=== PATIENT | male | born 1985 | race Caucasian/White ===

== ENCOUNTER 2022-04-11 11:45 | Emergency (ER) | payer MEDICAID, SELFPAY ==
[2022-04-11 11:46] VITALS: BP 150/89; PULSE 93; RESP 16; TEMP 36.7; O2SAT 98; BMI 23.7
--- NOTE | 2022-04-11 12:37 | EX.ED.DYSGE1 ---
HPI <BRYAN Parrish - Last Filed: 04/11/22 13:54> History of Present Illness Chief Complaint: Allergic Reaction Narrative Narrative: 36-year-old male with no past medical history presents with paresthesias. He got his first Moderna shot in his left arm 3 days ago. He says since then he had some transient fever, chills, muscle aches but also numbness and tingling in his left arm and both lower extremities. They viral type symptoms have resolved and the paresthesias have improved but he feels like whenever he sleeps his left hand and his left foot are numb. There is no weakness. No swelling or skin changes. PFSH <BRYAN Parrish Last Filed: 04/11/22 13:54> PFS Home Medications NK 04/11/22 [History Last Taken Unknown] Allergy/AdvReac Type Severity Reaction Status Date / Time No Known Allergies Allergy Verified 04/11/22 11:48 Surgical History (Updated 04/11/22 @ 12:00 by Radha Yan) Hx of cholecystectomy Social History Smoking Status: Never smoker ROS <BRYAN Parrish - Last Filed: 04/11/22 13:54> ROS ED ROS Narrative Constitutional: Negative for fever, chills, malaise. Eyes: Negative for visual change. ENT: Negative for sore throat, ear pain, rhinorrhea. CVS: Negative for palpitations, chest pain, syncope. Respiratory: Negative for shortness of breath, cough, orthopnea. GI: Negative for abdominal pain, nausea, vomiting, diarrhea, constipation, melena, hematochezia. : Negative for dysuria, hematuria or frequency. Neuro: Positive for paresthesias. Negative for headache, motor dysfunction. Skin: Negative for rash, abscess, or wound. Musc: Negative for joint pain, swelling, trauma. Heme: Negative for easy bruising, bleeding, lymphadenopathy. EXAM <BRYAN Parrish Last Filed: 04/11/22 13:54> Physical Exam Narrative Exam Narrative: CONST: Patient sitting in no acute distress. EYES: Normal inspection. NECK: Normal inspection. RESP: No respiratory distress, CTAB. CVS: Regular rate and rhythm, no murmur, no gallop. SKIN: Color normal, no rash, warm, dry, intact. EXTREMITIES: Normal appearance, no edema. NEURO: Oriented x4. PSYCH: Normal affect. Const Vital Signs: 04/11/22 11:46 Temperature 98.0 F Temperature Source Temporal Pulse Rate 93 Respiratory Rate 16 Blood Pressure 150/89 H Blood Pressure Mean 109 Pulse Ox 98 Oxygen Delivery Method Room Air <Dr. Tray Dela Cruz DO - Last Filed: 04/11/22 15:31> Physical Exam Const Vital Signs: 04/11/22 11:46 Temperature 98.0 F Temperature Source Temporal Pulse Rate 93 Respiratory Rate 16 Blood Pressure 150/89 H Blood Pressure Mean 109 Pulse Ox 98 Oxygen Delivery Method Room Air MDM <BRYAN Parrish - Last Filed: 04/11/22 13:54> [facility] Narrative Medical decision making narrative: Patient presents with paresthesias in his left arm and left leg have been going on for the last 3 days. He states now just his left hand and left foot feel numb after he wakes up from sleeping. He is concerned this is a reaction to the COVID-vaccine he received. Patient appears well and nontoxic. Vital signs within normal limits. Medical exam is benign. He has normal sensation to light touch in face and upper and lower extremities. Normal strength, NIH is 0. I told him I really do not think this is a reaction to the vaccine. When his nurse went back in his room he had eloped prior to the attending evaluation. 1. Paresthesias, upper and lower extremities <Dr. Tray Dela Cruz DO - Last Filed: 04/11/22 15:31> [facility] Narrative Medical decision making narrative: This patient was seen with a PA/EVALUATION MANAGER Individually assessed they patient including history and physical. I have reviewed everything on the chart that is available however before I could see the patient the patient eloped from the emergency room. Patient presents with paresthesias in his left arm and left leg have been going on for the last 3 days. He states now just his left hand and left foot feel numb after he wakes up from sleeping. He is concerned this is a reaction to the COVID-vaccine he received. Patient appears well and nontoxic. Vital signs within normal limits. Medical exam is benign. He has normal sensation to light touch in face and upper and lower extremities. Normal strength, NIH is 0. I told him I really do not think this is a reaction to the vaccine. When his nurse went back in his room he had eloped prior to the attending evaluation. 1. Paresthesias, upper and lower extremities Discharge Plan Triage Chief Complaint: Allergic Reaction ED Midlevel Provider: Clemencia Castro ED Provider: Tray Dela Cruz Dx/Rx/DC Orders Clinical Impression: Paresthesia Prescriptions: No Action NK Primary Care Provider: Care Physician,No Primary Referrals: NOT,DEFINED [NON-STAFF] - Disposition Disposition: Home, Self Care Discharge Date/Time: 04/11/22 13:34
--- NOTE | 2022-04-11 13:35 | ED.RN ---
pt refused to sign form for registration and left without papers. c/o felt like the lady that came in to see me was very unprofessional and i dont feel like being here to get degraded pt walked out without papers or wc.
== END 2022-04-11 13:34 | disposition home or self-care (01) ==
LOC: ED 13:30
PROVIDERS: Emergency Provider Student in an Organized Health Care Education/Training Program; Visit Provider Student in an Organized Health Care Education/Training Program
DX: R20.2 Paresthesia of skin (principal); M79.10 Myalgia, unspecified site; R50.9 Fever, unspecified
CPT/HCPCS: 99281; 99282

== ENCOUNTER 2022-09-24 22:55 | Emergency (ER) | payer MEDICAID, SELFPAY ==
[2022-09-24 22:55] VITALS: BP 175/96; PULSE 118; RESP 18; TEMP 36.7; O2SAT 100; BMI 23.0
[2022-09-24 23:05] VITALS: BP 150/94; PULSE 102; RESP 22; O2SAT 100
--- NOTE | 2022-09-24 23:14 | RAD_ITS ---
INDICATION: Cp EXAMINATION/TECHNIQUE: X-RAY - XR Chest 1 View AP portable. 11:32 PM. COMPARISON: None. FINDINGS: LINES/DEVICES: None. LUNGS: No consolidation. No pneumothorax. MEDIASTINUM: Unremarkable. CARDIAC SILHOUETTE: Not enlarged. BONES AND SOFT TISSUES: No acute abnormalities. RAD/Chest 1 View (Portable) IMPRESSION: Negative portable chest x-ray. Electronically Signed: Anat Hayes MD at 23:59 EST ,
--- NOTE | 2022-09-24 23:15 | EKG12_ITS ---
Test Reason : DYSRHYTHMIA Blood Pressure : / mmHG Vent. Rate : 102 BPM Atrial Rate : 102 BPM P-R Int : 142 ms QRS Dur : 104 ms QT Int : 344 ms P-R-T Axes : 080 077 061 degrees QTc Int : 448 ms Sinus tachycardia Possible Right atrial enlargement Nonspecific T wave abnormality Abnormal ECG Confirmed by MANDY MURPHY, JOHN ([id number]), slot editor MAURISIO SHABAZZ ([id number]) on 09/29/2022 1:05:02 PM Referred By: ERICKA Confirmed By:JOHN GALVAN MD
--- NOTE | 2022-09-24 23:29 | EDS_ITS ---
HPI History of Present Illness Chief Complaint: Palpitations Informant: patient Narrative Narrative: Patient states he has been having episodes of chest pain in the middle of his chest that will sometimes radiate up toward the neck. They last about 10 or 15 seconds at the most. These have been going on for 2 or 3 weeks. There is nothing specific that brings them on. He can exert himself without symptoms or he may get symptoms. Symptoms can occur when he is at rest too. There is no consistency. Nothing really makes it better or worse. He does feel little short of breath with these sometimes. He feels a little lightheaded. He is not having symptoms now. He also has been getting racing heartbeats frequently for the last 2 or 3 weeks. He thinks it is fast and regular versus irregular but not sure. He saw his primary doctor for this but symptoms cannot be reproduced. Patient denies any chronic medical conditions. He has no blood pressure diabetes cholesterol smoking history or family history of heart disease or DVT or PEs. Is on no medications No allergies. Last surgery was gallbladder about 6 years ago. Non-smoker and uses no IV drugs. No [id number] meds. PFSH PFS Home Medications NK 04/11/22 [History Last Taken Unknown] Allergy/AdvReac Type Severity Reaction Status Date / Time No Known Allergies Allergy Verified 09/24/22 22:58 Surgical History Hx of cholecystectomy Social History Smoking Status: Never smoker ROS ROS ED Constitutional Constitutional ED: Denies fever(s) or subjective Eyes Eyes: Denies blurry vision, change in vision or diplopia ENT ENT ED: Denies ear pain, rhinorrhea or sore throat Cardiovascular Cardiovascular: Reports chest pain, palpitations and racing heartbeat Respiratory/Chest Respiratory/Chest: Reports dyspnea; Denies cough or sputum Gastrointestinal Gastrointestinal: Denies abdominal pain, nausea or vomiting Genitourinary Genitourinary ED: Denies hematuria Musculoskeletal Musculoskeletal: Reports neck pain; Denies back pain or myalgias Integumentary Denies abscess, Abrasions or rash Neurologic Neurologic: Denies headache(s), paresthesias or weakness Psychiatric Psychiatric: Denies anxiety Endocrine Endocrinology: Denies polydipsia or polyuria Hematologic/Lymphatic Hematologic/Lymphatic: Denies easy bleeding or easy bruising Allergic/Immunologic Allergic/Immunologic ED: Denies urticaria EXAM Physical Exam Const Vital Signs: 09/24/22 22:55 09/24/22 23:05 09/24/22 23:05 Temperature 98.0 F Temperature Source Temporal Pulse Rate 118 H 102 H Respiratory Rate 18 22 H Respiratory Effort Short of Breath Blood Pressure 175/96 H 150/94 H Blood Pressure Mean 122 112 Pulse Ox 100 100 Oxygen Delivery Method Room Air Room Air 09/25/22 00:29 Temperature Temperature Source Pulse Rate 92 Respiratory Rate 12 Respiratory Effort Blood Pressure 125/82 H Blood Pressure Mean 96 Pulse Ox 99 Oxygen Delivery Method Room Air Positive well nourished and well developed General Appearance ED: well developed and NAD; Negative for cyanotic or diaphoretic HEENT Reports moist mucous membranes Eyes EOMs intact bilaterally General Eye ED: Negative for scleral icterus Neck supple and no JVD Neck Narrative: No bruit. No tenderness. No swelling. Chest Wall inspection of chest normal and palpation of chest normal Resp normal respiratory effort and clear to auscultation bilaterally Resp Narrative: No pleuritic pain Effort and Inspection: Negative for retractions or pain with movement Auscultation: Negative for rales, rhonchi or wheezes Cardio regular rate and regular rhythm Rate: other Other Details: Heart rate is running about 95-104 right now. It looks to be sinus. I see no ectopy. GI normal to inspection, nondistended, normoactive bowel sounds and non-tender Back/Spine no CVA tenderness Extremity normal to inspection Extremity Narrative: No edema, cords, distended veins tenderness or asymmetry General Extremety ED: Negative for edema or tenderness General Extremity: Negative for edema Neuro Sensorium / Orientation: alert Psych mental status grossly normal Skin no rashes or lesions noted MDM MDM MDM Narrative Medical decision making narrative: Chest x-ray showed no acute process. CBC including white count hemoglobin and platelets are normal. D-dimer is negative. Troponins negative despite 2 weeks of symptoms. Electrolytes do show elevated BUN showing mild dehydration. This is likely due to elevated glucose of 170. I do not think this requires acute treatment for hyperglycemia but it is very important he gets follow-up and this was explained to the patient. I also explained that since he gets pain in the mid chest going up to his neck he can try Prilosec or Nexium once a day to see if this might help his symptoms. He states he only eats 1 time a day and I think this could contribute to some gastritis. If he develops worsening pain lightheadedness or other symptoms he should return. He will see his physician in follow-up. We discussed that he may end up getting outpatient stress test or Holter monitor or other work-up. He has low heart score and I think he is safe to go home with a negative work-up after a couple weeks of symptoms. Lab Data Attestation: I reviewed the patient's lab results. Labs: Laboratory Results - last 24 hr 09/24/22 09/24/22 09/24/22 23:25 23:25 23:25 WBC 5.2 RBC 5.00 Hgb 15.2 Hct 43.9 MCV 87.8 MCH 30.4 MCHC 34.6 RDW Std Deviation 38.5 RDW Coeff of Jazmyne 12.0 Plt Count 152 MPV 9.8 Immature Gran % (Auto) 0.400 Neut % (Auto) 52.4 Lymph % (Auto) 35.6 [place] % (Auto) 10.8 H Eos % (Auto) 0.4 Baso % (Auto) 0.4 Absolute Neuts (auto) 2.7 Absolute Lymphs (auto) 1.84 Nucleated RBC % 0 D-Dimer Quant (PE/DVT) 0.27 Sodium 141 Potassium 3.5 Chloride 106 Carbon Dioxide 29.0 Anion Gap 6 BUN 28 H Creatinine 0.76 Estim Creat Clear Calc 142.33 Est GFR (MDRD) Af Amer 148 Est GFR (MDRD) Non-Af 122 BUN/Creatinine Ratio 37.1 H Glucose 170 H Calcium 8.9 Troponin I High Sens 4 Radiography Diagnostic Testing: Clinical Impression(s) from Imaging Studies Chest X-Ray 09/24/22 23:14 IMPRESSION: Negative portable chest x-ray. Electronically Signed: Anat Hayes MD at 23:59 EST , Chest x-ray looked at by me and read by radiology shows no acute process. EKG Initial EKG: Comments: EKG done for palpitations and chest pain read by me showed sinus rhythm with mild tachycardic rate at 102. No ectopy is noted. Nonspecific ST and T wave changes but no acute ST elevation or depression of note. CA interval, QRS duration and QTc are normal. There is no prior available that I find in our system to compare. Discharge Plan Triage Chief Complaint: Palpitations ED Provider: Bryon Veloz Dx/Rx/DC Orders Clinical Impression: Chest pain, Heart palpitations Instructions: ED Chest Pain, Uncertain Cause, ED Palpitations Prescriptions: No Action NK Primary Care Provider: Valentina Heard Referrals: Care Physician,No Primary [Non-Staff] - Activity Restrictions/Additional Instructions: Follow-up with your family doctor as soon as possible. They may do further testing, stress test, Holter monitor or other evaluation. We also need repeat testing for elevated blood sugar that was found today. Disposition Disposition: Home, Self Care
[2022-09-24] MEDS: 0.9% Normal Saline 1,000 ML 1000 ML IV (23:30)
[2022-09-24 23:42] LABS: Absolute Lymphocyte Count 1.84 X10^3/uL (0.83-4.51); Absolute Neutrophil Count 2.7 X10^3/uL (2.0-7.7); Basophil# 0.02 X10^3/uL; Basophil% 0.4 % (0-1); Eosinophil# 0.02 X10^3/uL; Eosinophils% 0.4 % (0-5); Hematocrit 43.9 % (40-54); Hemoglobin 15.2 g/dL (13.0-16.5); Lymphocyte # 1.84 X10^3/ul (0.83-4.51); Lymphocyte % 35.6 % (19-41); Mean Corp Hgb Conc 34.6 g/dL (32-36); Mean Corpuscular Hgb 30.4 pg (27.0-32.0); Mean Corpuscular Volume 87.8 fL (80-94); Mean Platelet Vol. 9.8 fl (6.2-12.0); Monocyte# 0.56 X10^3/uL; Monocyte% 10.8 % (0-10); NRBC Flagged by Analyzer 0 % (0-5); Neutrophil # 2.71 X10^3/uL (2.7-7.7); Neutrophil % 52.4 % (47-70); Platelet Count 152 K/mm3 (150-450); RBC Distribution Width SD 38.5 fl (35.1-43.9); White Blood Count 5.2 K/mm3 (4.4-11.0)
[2022-09-24 23:59] LABS: D-Dimer Quantitative (DVT/PE) 0.27 FEU/ug/m (0.27-0.49)
[2022-09-25 00:10] LABS: Anion Gap 6 (5-15); BUN 28 mg/dL (7-18); BUN/Creat Ratio 37.1 RATIO (10-20); Calcium,Total 8.9 mg/dL (8.5-10.1); Chloride 106 mmol/L (98-107); Creatinine, Serum 0.76 mg/dL (0.70-1.30); EST Glomerular Filtration Rate 122 mL/min (>60); Est Glom Filt Rate - Afr Amer 148 mL/min (>60); Estimated Creatinine Clearance 142.33 ml/min; Glucose 170 mg/dL (74-106); Potassium 3.5 mmol/L (3.5-5.1); Sodium Level 141 mmol/L (136-145); Troponin-I HS 4 pg/mL (3.0-78.0)
[2022-09-25 00:29] VITALS: BP 125/82; PULSE 92; RESP 12; O2SAT 99
== END 2022-09-25 00:44 | disposition home or self-care (01) ==
PROVIDERS: Emergency Provider Emergency Medicine; PCP Internal Medicine; Visit Provider Emergency Medicine
DX: R07.9 Chest pain, unspecified (principal); E86.0 Dehydration; R00.2 Palpitations; R06.02 Shortness of breath
CPT/HCPCS: 71045; 80048; 84484; 85025; 85379; 93005; 99283; J7030; A4216